=== PATIENT | female | born 1985 | race Caucasian/White ===

== ENCOUNTER 2018-12-31 20:26 | Emergency (ER) | payer OTHER ==
[~2018-12-31] VITALS: Ht 165.1 cm; Wt 68.0 kg
[2018-12-31 20:46] VITALS: BP 150/84
[2018-12-31] MEDS ORDERED: IBUPROFEN 400 MG TABLET PO ONE (21:00)
[2018-12-31] MEDS ORDERED: IBUPROFEN 400 MG TABLET ONE (21:05)
== END 2018-12-31 21:14 | disposition home or self-care (01) ==
LOC: ER 20:35
DX: S60.111A Contusion of right thumb with damage to nail, initial encounter (principal); W23.0XXA Caught, crushed, jammed, or pinched between moving objects, initial encounter; Y93.89 Activity, other specified; Y92.89 Other specified places as the place of occurrence of the external cause; Y99.8 Other external cause status
CPT/HCPCS: 29125; 99283; A4606